=== PATIENT | female | born 1955 | race Caucasian/White ===

== ENCOUNTER 2017-01-20 04:10 | Inpatient (IN) | payer MEDICARE, OTHER ==
[~2017-01-20] VITALS: Ht 167.6 cm; Wt 71.9 kg
[2017-01-20] MEDS ORDERED: ASPI325T PO (04:27)
[2017-01-20] MEDS ORDERED: MORPHINE 4 MG/ML 1ML SYRINGE IV PRN (06:00)
[2017-01-20] MEDS ORDERED: ONDANSETRON 4MG/2ML VIAL (J2405) IV ONE (06:00)
[2017-01-20 06:15] LABS: BASO % 0.4 % (0.0-1.0); EOS % 0.6 % (0.0-3.0); LARGE UNSTAINED CELL # 0.1 K/mm3 (0.0-0.4); LYMPH # 0.6 K/mm3 (1.5-4.5); MEAN CORPUSCULAR HEMOGLOBIN 24.3 pg (27.0-33.0); MEAN CORPUSCULAR HGB CONC 31.9 g/dl (32.0-36.5); MEAN CORPUSCULAR VOLUME 76.3 fl (80.0-96.0); MONO # 0.3 K/mm3 (0.0-0.8); MONO % 3.7 % (0.0-5.0); NEUTROPHILS # 6.8 K/mm3 (1.8-7.7); NEUTROPHILS % 87.3 % (36.0-66.0); PLATELET COUNT, AUTOMATED 236 k/mm3 (150-450); RED CELL DISTRIBUTION WIDTH 16.2 % (11.5-14.5); WHITE BLOOD COUNT 7.7 K/mm3 (4.0-10.0)
[2017-01-20 06:23] LABS: INR 1.05
[2017-01-20 06:25] LABS: ANION GAP 4 MEQ/L (8-16); BLOOD UREA NITROGEN 11 MG/DL (7-18); CARBON DIOXIDE LEVEL 29 MEQ/L (21-32); CHLORIDE LEVEL 109 MEQ/L (98-107); CREATININE FOR GFR 0.66 MG/DL (0.55-1.02); GLOMERULAR FILTRATION RATE > 60.0 (>45); GLUCOSE, FASTING 120 MG/DL (80-110); POTASSIUM SERUM 4.2 MEQ/L (3.5-5.1); SODIUM LEVEL 142 MEQ/L (136-145)
[2017-01-20] MEDS ORDERED: NS 1,000 ML IV SCH ×2 (06:30→13:30)
--- NOTE | 2017-01-20 08:05 | REP ---
Portable chest: Single view. History: Preop. Comparison study: No comparison study. Findings: The lungs are well inflated and clear. The pleural angles are sharp. Heart size is normal. Pulmonary vasculature is not increased. No significant bony abnormality is seen. Impression: Negative portable chest x-ray. Signed by Marshall Dorado MD 01/20/2017 07:56 A
[2017-01-20] MEDS ORDERED: PERCOCET 5MG/325MG TAB PO PRN ×3 (08:15→13:30)
[2017-01-20] MEDS ORDERED: MORPHINE 2 MG/ML 1ML SYRINGE IV PRN ×3 (08:15→13:30)
[2017-01-20] MEDS ORDERED: ONDANSETRON 4MG/2ML VIAL (J2405) IV PRN ×2 (08:15→13:30)
[2017-01-20] MEDS ORDERED: BISACODYL 10 MG SUPP PR PRN (08:15)
--- NOTE | 2017-01-20 08:16 | REP ---
AP pelvis: Single view. History: Injury in a fall. Findings: There is a radiolucency through the medial aspect of the femoral neck on the left consistent with a nondisplaced left femoral neck fracture. The bony pelvic ring is intact. No sacral or pelvic fracture is seen. There is some degenerative change in the symphysis pubis and in the lower lumbar spine. Impression: Left femoral neck fracture. Signed by Marshall Dorado MD 01/20/2017 08:37 A
--- NOTE | 2017-01-20 08:37 | REP ---
Left hip: Three views. History: Trauma. Findings: There is a nondisplaced left femoral neck fracture visible. The left hemipelvis appears intact. No other fracture is seen. Impression: Nondisplaced fracture of the left femoral neck. Signed by Marshall Dorado MD 01/20/2017 09:54 A
[2017-01-20] MEDS: SENOKOT S TAB PO SCH ×2 (09:00→20:17)
--- NOTE | 2017-01-20 10:12 | HPEPDOC ---
General Date of Admission Jan 20, 2017 at 08:14 Chief Complaint The patient is a 61-year-old female admitted with a reason for visit of Hip Fx. History of Present Illness PRIMARY CARE PROVIDER: Dr. [facility] CHIEF COMPLAINT: fall HISTORY OF PRESENT ILLNESS: Ms. Knox is a 61-year-old postmenopausal female with a past medical history significant only for meningioma status post resection ~3 years ago and varicose veins, who presented to the [facility] ED around 4 AM this morning status- post fall. Is being evaluated today by hospitalist service for medical optimization for a L hip fracture repair to be done today by Orthopedic Surgery. States that she was in the garage last night around 8 PM, and "managed to move her left foot backwards, her foot went from right under her, her right foot was planted, she lost her balance, and fell on her left side on her left hip." Denies hitting her head or having any loss of consciousness. Admits that there was a left scrape over her pinky finger. She was able to get back up and still able to walk in her home. She decided not to come to the emergency department right away because she wanted to give it some time and see if her pain got better in her left hip. However, she ended up coming around 4 AM to the ED this morning as there was no improvement. Rates her pain 8 out of 10 and it is an ache. Does not radiate anywhere. Denies numbness in her L leg or anywhere else. She has taken nothing for the pain and did not try any hot compresses or ice. At this point in time, she reports minimal to no pain and states that she has just received morphine. Admits that she has fallen before, but has never had a fracture. States that she has residual weakness on her left side from her history of meningioma, and often has some weakness on that side that causes her to fall at times. 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 Denies being on any blood thinners. Takes one half of a 325 mg tablet of aspirin every day. Upon review of systems, patient denies fevers, chills, headache, dizziness, chest pain, palpitations, shortness of breath, nausea, vomiting, abdominal pain , diarrhea, constipation. Admits to some tingling in her left foot that is usually there and is nothing new. Admits to residual weakness in her L left leg from her history of her meningioma, but no increased or new weakness. Denies numbness in any extremity. Denies bowel or bladder incontinence. PAST MEDICAL HISTORY: Hx of Meningioma status-post resection 3 years ago Impacted [place] Tooth in R Lower Jaw 30 years ago status-post Removal Varicose Veins from Postmenopause Hx of Dysfunctional Uterine Bleeding with severe menorrhagia with resultant anemia 4 Full-Term Spontaneous Vaginal Deliveries PAST SURGICAL HISTORY: Meningioma Resection 3 years ago Tubal Ligation 1990 Endometrial Biopsy 2006 MEDICATIONS: Aspirin: 1/2 tablet of 325 mg daily (162.5 mg) Magnesium Oxide: 30 mg BID (does not take regularly and may take only 1 tablet daily) Vitamin B2: 1 tablet at night ALLERGIES: NKDA No Latex Allergy. No environmental allergies. SOCIAL HISTORY: and lives with Norman June: health care proxy Has 4 children. Occupation: used to be dairy and strawberry cabrera for many years. Current Occupation: [employer] Reports no exposure to asbestos or toxic chemicals Denies any recent sick contacts Denies any recent travel anywhere FAMILY HISTORY: Father: 81 yo, had quadruple bypass, prostate cancer, alive Mother: 81 yo, has bipolar disorder, hx of hiatal hernia, alive 4 brothers and 2 sisters Brother: 59 yo, has CAD status-post PCI Brother: 55 yo, Type 2 DM Other brothers and sisters healthy and alive Paternal Aunt: breast cancer Maternal Grandfather: melanoma CODE STATUS: FULL CODE REVIEW OF SYSTEMS: All ROS negative except for those as stated above in HPI. Vitals: T: 99 BP:119/78 RR: 18 P: 94 O2 Saturation: 99% room air General: Pleasant elderly thin female. Appears stated age. Awake, alert, oriented x 3. NAD. HEENT: Head: normocephalic, atraumatic. Eyes: PERRL, sclera are nonicteric, cataracts appreciated bilaterally. Nose: No external lesions Throat: no pharyngeal erythema or exudates, tongue is a bit white, moist buccal mucosa Neck: Supple Respiratory: clear to auscultation bilaterally with no wheezes, rales, or rhonchi. Chest: Symmetrical chest rise bilaterally. Cardiovascular: regular rate and rhythm, with no murmurs, rubs or gallops. Abdomen: soft, nontender, nondistended, no hepatosplenomegaly appreciated. Bowel sounds present. Extremities: 5/5 strength upper extremities bilaterally. 5/5 strength in RLE. No strength testing done in LLE due to hip fracture. No LE edema bilaterally. Feet are cool to the touch bilaterally. No swelling in either lower extremity bilaterally. MSK: No tenderness to palpation of L hip currently (has had morphine) Neurological: CN 2-12 intact bilaterally. Sensation intact in upper and lower extremities bilaterally. Integumentary: L 5th digit scrape on dorsal surface. Vascular: +1 dorsalis pedis pulse and +2 posterior tibialis pulse in LLE. +2 dorsalis pedis pulse in RLE. LABORATORY DATA: Please see below. ELECTROCARDIOGRAM: Normal Sinus Rhythm with no acute ST-T wave changes, elevations, or depression. Ventricular Rate: 80 bpm. MN interval: 161 ms QRS duration: 83 ms QTc: 426 ms RADIOLOGY: L AP and Lateral Hip X-Ray: Nondisplaced Fracture of L Femoral Neck. CXR: Negative portable chest x-ray. Pelvis AP X-ray: Left femoral neck fracture. ASSESSMENT: Ms. Knox is a 61-year-old female with a past medical history significant only from meningioma status post resection ~3 years ago and varicose veins, who presented to the [facility] ED around 4 AM this morning status-post fall causing a L hip fracture. Is being evaluated today by hospitalist service for medical optimization for a L hip fracture repair to be done today by Orthopedic Surgery. PLAN: -L Hip Fracture: Orthopedics consulted and has seen patient. Will take to the OR today for repair. NPO and IVF on board. Pain control, DVT ppx, and bowel regimen as per orthopedics. -Presurgical Evaluation: EKG showed NSR with no acute ST-T wave changes. Patient has been evaluated to be Low Cardiac Risk from a medical standpoint. Is medically optimized for the proposed procedure. Denied chest pain, SOB. Has no significant medical hx. -Continue home medications. DVT ppx: as per Orthopedics FULL CODE STATUS Immunizations as per protocol My preceptor for this patient encounter was Dr. Danielle Oliver and was physically present in the building during the encounter and was fully available. As needed , all aspects of the patient interview, examination, medical decision making process, and medical care plan development were reviewed and approved by the preceptor. Preceptor is aware and concurs with the plan as stated in the body of this note and will attest to such by his/her cosignature. Home Medications Scheduled Aspirin (Aspirin) 325 Mg Tab, 162.5 MG PO DAILY, (Reported) Allergies Coded Allergies: No Known Allergies (Unverified , 01/20/17) Vital Signs Vital Signs Date Time Temp Pulse Resp B/P (MAP) Pulse Ox O2 Delivery O2 Flow Rate FiO2 01/20/17 06:28 20 100 Room Air 01/20/17 06:28 78 119/64 (82) 01/20/17 04:24 99.0 Laboratory Data Labs 24H Laboratory Tests 2 01/20/17 05:38: White Blood Count 7.7, Red Blood Count 4.74, Hemoglobin 11.5L, Hematocrit 36.2, Mean Corpuscular Volume 76.3L, Mean Corpuscular Hemoglobin 24.3L, Mean Corpuscular Hemoglobin Concent 31.9L, Red Cell Distribution Width 16.2H, Platelet Count 236, Neutrophils (%) (Auto) 87.3H, Lymphocytes (%) (Auto) 7.0L, Monocytes (%) (Auto) 3.7, Eosinophils (%) (Auto) 0.6, Basophils (%) (Auto) 0.4, Neutrophils # (Auto) 6.8, Lymphocytes # (Auto) 0.6L, Monocytes # (Auto) 0.3, Eosinophils # (Auto) 0.0, Basophils # (Auto) 0.0, Large Unclassified Cells % 1.0 , Large Unclassified Cells # 0.1, Prothrombin Time 13.8, Prothromb Time International Ratio 1.05, Activated Partial Thromboplast Time 29.8, Anion Gap 4L , Glomerular Filtration Rate > 60.0, Blood Urea Nitrogen 11, Creatinine 0.66, Sodium Level 142, Potassium Level 4.2, Chloride Level 109H, Carbon Dioxide Level 29, Calcium Level 9.0 CBC/BMP Laboratory Tests 01/20/17 05:38 Red Blood Count 4.74, Mean Corpuscular Volume 76.3 L, Mean Corpuscular Hemoglobin 24.3 L, Mean Corpuscular Hemoglobin Concent 31.9 L, Red Cell Distribution Width 16.2 H, Neutrophils (%) (Auto) 87.3 H, Lymphocytes (%) (Auto ) 7.0 L, Monocytes (%) (Auto) 3.7, Eosinophils (%) (Auto) 0.6, Basophils (%) ( Auto) 0.4, Neutrophils # (Auto) 6.8, Lymphocytes # (Auto) 0.6 L, Monocytes # ( Auto) 0.3, Eosinophils # (Auto) 0.0, Basophils # (Auto) 0.0, Calcium Level 9.0 Plan / VTE VTE Prophylaxis Ordered?: No (As per Orthopedics Team) LEONELA SANCHEZ OGME-1 Jan 20, 2017 10:12
[2017-01-20] MEDS ORDERED: ceFAZolin 2 GM/D5W 50 ML IV BAG (J0690) As Ordered ONE (11:41)
[2017-01-20] MEDS ORDERED: LIDOCAINE 2% INJ 100 MG/5 ML SDV (FOR ANES.) As Ordered ONE (12:37)
[2017-01-20] MEDS ORDERED: PHENYLephrine HCL 500 MCG/5 ML (100MCG/ML) SYRINGE (J2370) As Ordered ONE (12:37)
[2017-01-20] MEDS ORDERED: MIDAZOLAM INJ 2 MG/2 ML VIAL (J2250) As Ordered ONE (12:37)
[2017-01-20] MEDS ORDERED: ePHEDrine SULFATE 25 MG/5 ML(5MG/ML) SYRINGE As Ordered ONE (12:37)
[2017-01-20] MEDS ORDERED: fentaNYL 100 MCG/2 ML INJECTION (J3010) As Ordered ONE (12:37)
[2017-01-20] MEDS ORDERED: PROPOFOL 200 MG/20 ML VIAL As Ordered ONE (12:37)
[2017-01-20] MEDS ORDERED: ONDANSETRON 4MG/2ML VIAL (J2405) As Ordered ONE (12:47)
[2017-01-20] MEDS ORDERED: LR 1,000 ML IV SCH (13:30)
[2017-01-20] MEDS ORDERED: METOCLOPRAMIDE INJ 10MG/2ML VIAL (J2765) IV PRN (13:30)
[2017-01-20] MEDS ORDERED: fentaNYL 100 MCG/2 ML INJECTION (J3010) IV PRN (13:30)
--- NOTE | 2017-01-20 13:34 | REP ---
Left hip: Five views. History: ORIF in the OR. 1 minute 11 seconds of fluoroscopy time is reported. Findings: A sequence of five last image hold fluoro spot radiographs of the left hip document placement of three metallic pins across a femoral neck fracture. Signed by Marshall Dorado MD 01/20/2017 04:13 P
[2017-01-20 14:00] VITALS: BP 123/76
[2017-01-20 14:30] VITALS: BP 128/79
[2017-01-20] MEDS: PERCOCET 5MG/325MG TAB PO PRN ×2 (14:59→19:01)
--- NOTE | 2017-01-20 15:25 | CR ---
DATE OF CONSULTATION: 01/20/2017 CHIEF COMPLAINT: Left hip pain, status post fall. HISTORY OF PRESENT ILLNESS: The patient fell at 8 p.m. on 01/19 at her home directly onto her left hip. She was able to ambulate after that and woke this morning still able to ambulate, but presented to the emergency room due to persistent hip joint pain. No other complaints. She does have a past medical history significant for meningioma excision with resultant left-sided hemiparesis affecting the lower extremity, which she states has been chronic foot drop, chronic weakness as well. She denies any acute changes in her neurovascular function in the left lower extremity and has no other complaints at this time. PAST MEDICAL HISTORY: As above. PAST SURGICAL HISTORY: As above; also a tubal ligation. CURRENT MEDICATIONS: States that she is only taking a single daily aspirin. ALLERGIES: None known. SOCIAL HISTORY: She denies tobacco use. REVIEW OF SYSTEMS: No fever, chills, nausea, vomiting. No diarrhea, no constipation. No chest pain or shortness of breath. PHYSICAL EXAMINATION: GENERAL: Awake, alert, and oriented times three, well-appearing female in no acute distress. She is appropriately dressed and well nourished. HEENT: Head is normocephalic, atraumatic. Extraocular muscles are intact. CARDIOVASCULAR: Regular rate and rhythm. PULMONARY: No increased work of breathing. ABDOMEN: Soft, nontender, nondistended. FOCUSED EXAMINATION OF THE LEFT LOWER EXTREMITY: There is focal tenderness about the greater trochanter and the hip joint. No significant swelling or edema. The skin is intact. Distally she has 2+ dorsalis pedis and posterior tibialis pulse. The foot is pink, warm and well perfused with sensation intact to light touch, and less than 2 seconds capillary refill on all of her toes. She has weakness with tibialis anterior and extensor hallucis longus function. Plantar flexion is grossly intact. She is able to flex and extend the knee fairly well and comfortably. She has a positive log roll, positive heel tap on the left side. She states that, again, the weakness in her left lower extremity is chronic with no changes. Examination of the right lower extremity is grossly negative. Negative log roll, negative heel tap. Grossly neurovascularly intact. BILATERAL UPPER EXTREMITIES: She has comfortable fluid arm movement up above the level of her head. CERVICAL SPINE: Nontender with a full pain-free range of motion. IMAGING: X-rays of the left hip joint and AP pelvis show a minimally or nondisplaced femoral neck fracture in slight valgus. Age-related degenerative changes are appreciated. ASSESSMENT: Acute femoral neck fracture as above. PLAN: I discussed at length with the patient the treatment options, operative and nonoperative management was discussed. I also discussed the various surgical options ranging from hip arthroplasty to internal fixation, and she is electing to go forward at this time with the left hip cannulated screw fixation of the fracture. We had a long discussion about the risks and benefits of treatment options, and she signed the surgical consent in my presence. She will be evaluated by the hospitalist service for admission and preoperative clearance. I did also review her labs and vital signs that are available for review in the electronic medical record. Overall, she should be stable to go through with the above operation today with typical postoperative management. Edited: jonathan 01/23/2017 1559 MTDD
[2017-01-20 15:30] VITALS: BP 132/75
[2017-01-20] MEDS ORDERED: WARFARIN SOD 5 MG TAB PO ONE (19:00)
--- NOTE | 2017-01-20 19:38 | ECGEPIP ---
Stationary ECG Study [facility] - ED Test Date: 2017-01-20 Pat Name: TIMMY RANKIN Department: Room: - Gender: F Medical Affairs Director: beto : 1955 Requested By: MARNI Calderón Order Number: [id number] Reading MD: Dai Davalos Measurements Intervals [place] Rate: 80 P: -19 MO: 161 QRS: 38 QRSD: 83 T: 21 QT: 390 QTc: 450 Interpretive Statements SINUS RHYTHM LOW QRS VOLTAGE LIMB LEADS NONSPECIFIC ST T WAVE CHANGES NO OLD ECGS FOR COMPARISON Electronically Signed On 01-20-2017 19:37:38 EDT by Dai Davalos
[2017-01-20] MEDS: ceFAZolin SOD 1 GM in D5W MINI-BAG PLUS 50 ML IV SCH (20:17)
[2017-01-20 22:00] VITALS: BP 120/77
[2017-01-21] MEDS: PERCOCET 5MG/325MG TAB PO PRN ×2 (00:07→04:45)
[2017-01-21] MEDS: ceFAZolin SOD 1 GM in D5W MINI-BAG PLUS 50 ML IV SCH (04:45)
[2017-01-21 06:00] VITALS: BP 114/68
[2017-01-21 06:31] LABS: BASO % 0.5 % (0.0-1.0); EOS # 0.3 K/mm3 (0.0-0.50); EOS % 4.5 % (0.0-3.0); LARGE UNSTAINED CELL # 0.1 K/mm3 (0.0-0.4); LARGE UNSTAINED CELL % 1.7 % (0.0-4.0); LYMPH # 1.6 K/mm3 (1.5-4.5); LYMPH % 24.4 % (24.0-44.0); MEAN CORPUSCULAR HEMOGLOBIN 24.5 pg (27.0-33.0); MEAN CORPUSCULAR HGB CONC 32.1 g/dl (32.0-36.5); MEAN CORPUSCULAR VOLUME 76.5 fl (80.0-96.0); MONO # 0.4 K/mm3 (0.0-0.8); MONO % 6.5 % (0.0-5.0); NEUTROPHILS # 3.8 K/mm3 (1.8-7.7); NEUTROPHILS % 62.4 % (36.0-66.0); PLATELET COUNT, AUTOMATED 200 k/mm3 (150-450); RED CELL DISTRIBUTION WIDTH 16.5 % (11.5-14.5); WHITE BLOOD COUNT 6.1 K/mm3 (4.0-10.0)
[2017-01-21 06:43] LABS: INR 1.15
[2017-01-21 06:46] LABS: ANION GAP 4 MEQ/L (8-16); BLOOD UREA NITROGEN 9 MG/DL (7-18); CALCIUM LEVEL 8.2 MG/DL (8.8-10.2); CARBON DIOXIDE LEVEL 27 MEQ/L (21-32); CHLORIDE LEVEL 105 MEQ/L (98-107); CREATININE FOR GFR 0.62 MG/DL (0.55-1.02); GLOMERULAR FILTRATION RATE > 60.0 (>45); GLUCOSE, FASTING 97 MG/DL (80-110); POTASSIUM SERUM 3.9 MEQ/L (3.5-5.1); SODIUM LEVEL 136 MEQ/L (136-145)
--- NOTE | 2017-01-21 08:08 | IPNPDOC ---
Subjective Date Seen The patient was seen on 01/21/17. Subjective Chief Complaint/HPI The patient is a 61-year-old female admitted with a reason for visit of Hip Fx. Events since last encounter pateint denied any complaints this morning, no fever or chills, pain well controlled, no chest pain ro sob , no abdominal pain or nausea or vomiting or diarrhea. Objective Physical Examination General Exam: Positive: Alert, Cooperative, No Acute Distress Eye Exam: Positive: PERRLA, Conjunctiva & lids normal, EOMI, Negative: Sclera icteric ENT Exam: Positive: Atraumatic, Mucous membr. moist/pink, Pharynx Normal Neck Exam: Positive: Supple, Negative: JVD, thyromegaly Chest Exam: Positive: Clear to auscultation, Normal air movement Heart Exam: Positive: Rate Normal, Regular Rhythm, Normal S1, Normal S2, Negative: Murmurs, Rubs Abdomen Exam: Positive: Normal bowel sounds, Soft, Negative: Tenderness, Hepatospenomegaly Extremity Exam: Positive: Normal pulses, Negative: Clubbing, Cyanosis, Edema Skin Exam: Positive: Nl turgor and temperature, Negative: Rash, Breakdown Assessment /Plan Problems (1) Hip fracture Status: Acute Problem Text: Left s/p ORIF on 01/20/17 pain control and dvt prophylaxis as per ortho protocol. (2) Meningioma Status: Resolved Problem Text: Had resection 3 years ago. now with mild left leg weakness. Plan/VTE VTE Prophylaxis Ordered?: Yes (As per Orthopedics Team) VS, I&O, 24H, Fishbone Vital Signs/I&O Vital Signs Date Time Temp Pulse Resp B/P (MAP) Pulse Ox O2 Delivery O2 Flow Rate FiO2 01/21/17 06:00 98.2 72 18 114/68 (83) 96 Room Air I&O- Last 24 Hours up to 6 AM 01/21/17 05:59 Intake Total 2690 ml Output Total 1350 ml Balance 1340 ml Laboratory Data 24H LABS Laboratory Tests 2 01/21/17 06:13: White Blood Count 6.1, Red Blood Count 4.02, Hemoglobin 9.9L, Hematocrit 30.7L, Mean Corpuscular Volume 76.5L, Mean Corpuscular Hemoglobin 24.5L, Mean Corpuscular Hemoglobin Concent 32.1, Red Cell Distribution Width 16.5H, Platelet Count 200, Neutrophils (%) (Auto) 62.4, Lymphocytes (%) (Auto) 24.4, Monocytes (%) (Auto) 6.5H, Eosinophils (%) (Auto) 4.5H, Basophils (%) (Auto) 0.5 , Neutrophils # (Auto) 3.8, Lymphocytes # (Auto) 1.6, Monocytes # (Auto) 0.4, Eosinophils # (Auto) 0.3, Basophils # (Auto) 0.0, Large Unclassified Cells % 1.7 , Large Unclassified Cells # 0.1, Prothrombin Time 14.8H, Prothromb Time International Ratio 1.15, Anion Gap 4L, Glomerular Filtration Rate > 60.0, Blood Urea Nitrogen 9, Creatinine 0.62, Sodium Level 136, Potassium Level 3.9, Chloride Level 105, Carbon Dioxide Level 27, Calcium Level 8.2L CBC/BMP Laboratory Tests 01/21/17 06:13 Red Blood Count 4.02, Mean Corpuscular Volume 76.5 L, Mean Corpuscular Hemoglobin 24.5 L, Mean Corpuscular Hemoglobin Concent 32.1, Red Cell Distribution Width 16.5 H, Neutrophils (%) (Auto) 62.4, Lymphocytes (%) (Auto) 24.4, Monocytes (%) (Auto) 6.5 H, Eosinophils (%) (Auto) 4.5 H, Basophils (%) ( Auto) 0.5, Neutrophils # (Auto) 3.8, Lymphocytes # (Auto) 1.6, Monocytes # (Auto ) 0.4, Eosinophils # (Auto) 0.3, Basophils # (Auto) 0.0, Calcium Level 8.2 L NICOLE LEDBETTER MD Jan 21, 2017 08:08
[2017-01-21] MEDS: MOM 30ML SUSPENSION UDC PO SCH (09:30)
[2017-01-21] MEDS: SENOKOT S TAB PO SCH ×2 (09:30→19:54)
--- NOTE | 2017-01-21 10:52 | RO ---
DATE OF PROCEDURE: 01/20/2017 PREOPERATIVE DIAGNOSIS: Left femoral neck fracture. POSTOPERATIVE DIAGNOSIS: Left femoral neck fracture. PROCEDURE PERFORMED: Left hip percutaneous screw fixation, plus closed reduction. PRIMARY SURGEON: Adi Lovelace MD TECHNOLOGY SALES CONSULTANT: STEFFEN Tatum, [employer] ANESTHESIA: Spinal. ESTIMATED BLOOD LOSS: 150 mL. IMPLANTS: Synthes partially threaded, 7.3 mm cannulated cancellous screws with washers times three. No specimens. No blood administered. No complications. TECHNICAL PROCEDURE: The patient was identified in the preoperative holding area by name, medical record number and date of . Surgical site was marked in consultation with the patient, and she was evaluated by anesthesia. When she was ready, she was brought back to the operating suite on a gurney and transferred to the operating room (OR) table. At this point, spinal anesthesia was induced without complication and the left lower extremity was next sterile prepped and draped in the usual fashion after she was placed in the fracture table, appropriately padding all bony prominences and securing the well leg. Prior to beginning the procedure, a final time-out was performed and all in the room agreed. She was given IV antibiotics of Ancef 2 grams prior to incision. I began the procedure by performing a limited closed reduction correcting a apex anterior flexion deformity of the femoral neck with some gentle posterior pressure confirming satisfactory reduction on multiple fluoroscopic views. I next made a longitudinal dissection centered over the greater trochanter, dissecting down through the skin and subcutaneous fat. Next, I identified and split the iliotibial band and went to bone. I next inserted three partially threaded, 7.3 mm cancellous cannulated screws with washers appropriately sized and confirmed satisfactory reduction of the fracture and placement of all hardware with fluoroscopic views in AP, lateral and live fluoroscopy throughout range of motion satisfactory internal fixation was appreciated. There was solid purchase on the lateral cortex. The wound was next copiously irrigated and closed in layers to include the fascia. Sterile dressings were applied. The patient was brought out of the fracture table and brought out of anesthesia and transferred to the postanesthesia care unit. FLAVIO
[2017-01-21 14:00] VITALS: BP 104/65
[2017-01-21] MEDS ORDERED: WARFARIN SOD 5 MG TAB PO ONE ×2 (17:00)
[2017-01-21 22:00] VITALS: BP 128/79
[2017-01-22] MEDS: PERCOCET 5MG/325MG TAB PO PRN ×2 (00:30→10:22)
[2017-01-22 06:00] VITALS: BP 109/70
[2017-01-22 07:14] LABS: BASO % 0.5 % (0.0-1.0); EOS # 0.3 K/mm3 (0.0-0.50); EOS % 4.4 % (0.0-3.0); LARGE UNSTAINED CELL # 0.1 K/mm3 (0.0-0.4); LARGE UNSTAINED CELL % 1.7 % (0.0-4.0); LYMPH # 1.4 K/mm3 (1.5-4.5); LYMPH % 18.2 % (24.0-44.0); MEAN CORPUSCULAR HEMOGLOBIN 24.3 pg (27.0-33.0); MEAN CORPUSCULAR HGB CONC 31.9 g/dl (32.0-36.5); MEAN CORPUSCULAR VOLUME 76.3 fl (80.0-96.0); MONO # 0.4 K/mm3 (0.0-0.8); MONO % 5.6 % (0.0-5.0); NEUTROPHILS # 4.9 K/mm3 (1.8-7.7); NEUTROPHILS % 69.5 % (36.0-66.0); PLATELET COUNT, AUTOMATED 221 k/mm3 (150-450); RED CELL DISTRIBUTION WIDTH 16.7 % (11.5-14.5); WHITE BLOOD COUNT 7.1 K/mm3 (4.0-10.0)
[2017-01-22 07:23] LABS: INR 1.23
[2017-01-22 07:36] LABS: ANION GAP 4 MEQ/L (8-16); BLOOD UREA NITROGEN 9 MG/DL (7-18); CALCIUM LEVEL 8.7 MG/DL (8.8-10.2); CARBON DIOXIDE LEVEL 28 MEQ/L (21-32); CHLORIDE LEVEL 107 MEQ/L (98-107); GLOMERULAR FILTRATION RATE > 60.0 (>45); GLUCOSE, FASTING 98 MG/DL (80-110); SODIUM LEVEL 139 MEQ/L (136-145)
[2017-01-22] MEDS ORDERED: MILKSUS PO (07:42)
[2017-01-22] MEDS ORDERED: SENN1TAB2 PO (07:42)
[2017-01-22] MEDS ORDERED: PERC5TAB6 PO (08:26)
[2017-01-22] MEDS ORDERED: COUM2.5T11 PO (08:26)
[2017-01-22] MEDS: MOM 30ML SUSPENSION UDC PO SCH (09:00)
[2017-01-22] MEDS: SENOKOT S TAB PO SCH (10:21)
--- NOTE | 2017-01-22 10:57 | DSES ---
DATE OF ADMISSION: 01/20/2017 DATE OF DISCHARGE: 01/22/2017 PRIMARY CARE PROVIDER: Adriana Munoz ORTHOPEDIC SURGEON: Dr. Adi Lovelace DISCHARGE DIAGNOSIS: Left fracture neck femur. Status post ORIF (open reduction and internal fixation) on January 20, 2017. History of meningoma status post resection in 2014 with residual mild left leg weakness. DISCHARGE MEDICATIONS: - Percocet 1-2 tablets every 6 hours as needed pain. - Coumadin daily - Senna Plus one tablet by mouth twice a day - Milk of Magnesia 30 mL suspension by mouth daily HOSPITAL COURSE: This is a 61-year-old healthy female who tripped and fell in her garage in the evening of January 19, 2017. She was able to get up by herself, went into the house, took a shower, walked about hoping her hip would get better. She had hurt her left hip and thought that pain would get better, however, at around 3 a.m. she was in excruciating pain and so came to the emergency room. In the ED (emergency department) patient was found to have left femoral neck fracture, patient was seen by Dr. Adi Lovelace, was subsequently to OP (operating room) and had ORIF done on January 20, 2017. Patient's surgery was uneventful and postoperative period was uneventful. At present patient has been seen by PT (physical therapy) and has been cleared to go home with home PT. Patient's pain is controlled and vitals are stable. PHYSICAL EXAMINATION: VITAL SIGNS: Temperature 98.7, pulse 82, respiratory rate 18. Blood pressure 109/70, pulse oximetry 94% on room air. GENERAL: Patient awake, alert and oriented times three, sitting up in chair in no acute distress. HEENT: Normocephalic atraumatic. Moist mucous membranes. Anicteric eyes. CHEST: Clear to auscultation. CARDIOVASCULAR: S1, S2, regular, no rub, murmur, or gallop. ABDOMEN: Soft, nontender. Bowel sounds present. EXTREMITIES: No edema. LABORATORY DATA: WBC 7.1, hemoglobin 10.6, platelet 221, sodium 139, potassium 4, chloride 107, bicarbonate 28, BUN 9, creatinine 0.6, glucose 98, calcium 8.7, INR is 1.23. DISPOSITION: Patient is discharged home in stable condition. DISCHARGE INSTRUCTIONS: Patient to followup with orthopedics in 2 weeks. Patient to followup with primary care provider in 1 month. Activity as per physical therapy. Diet as tolerated.
== END 2017-01-22 13:10 | disposition home health service (06) | DRG 481 ==
LOC: M ED 05:57 → M ED INP 08:14 → M MS5PR 14:00
PROVIDERS: ADMIT Internal Medicine Nephrology; ATTEND Internal Medicine Nephrology
PROC: 0QS734Z Reposition Left Upper Femur with Internal Fixation Device, Percutaneous Approach (ICD-10-PCS; principal; 2017-01-20 07:48)
DX: S72.045A Nondisplaced fracture of base of neck of left femur, initial encounter for closed fracture (principal); I69.854 Hemiplegia and hemiparesis following other cerebrovascular disease affecting left non-dominant side; W01.0XXA Fall on same level from slipping, tripping and stumbling without subsequent striking against object, initial encounter; Y92.015 Private garage of single-family (private) house as the place of occurrence of the external cause; M21.372 Foot drop, left foot; Y99.8 Other external cause status; Z79.82 Long term (current) use of aspirin; Z79.899 Other long term (current) drug therapy

== ENCOUNTER 2017-05-06 12:20 | Emergency (ER) | payer OTHER ==
[~2017-05-06] VITALS: Ht 170.2 cm; Wt 160.0 kg
[~2017-05-06 12:20] MED LIST: ASPI325T PO; COUM2.5T17 PO; MILKSUS PO; PERC5TAB12 PO; SENN1TAB2 PO
[2017-05-06] MEDS ORDERED: NORCO, ANEXSIA 5/325MG TABLET (HYDROcodone/ACETAMINOPHEN) PO ONE (12:45)
[2017-05-06] MEDS ORDERED: MORPHINE 4 MG/ML 1ML SYRINGE IV ONE (13:15)
--- NOTE | 2017-05-06 13:27 | REP ---
LEFT WRIST, FOUR VIEWS: HISTORY: Injury. There is a comminuted fracture of the distal radius and fracture of the ulnar styloid process. There is posterior dislocation of the fracture fragments and carpal bones. There is narrowing of the first carpometacarpal joint space. IMPRESSION: Fracture dislocation of the radius and ulna. Signed by Jaime Aparicio MD 05/06/2017 01:47 P
[2017-05-06 13:35] LABS: BASO % 0.6 % (0.0-1.0); EOS # 0.3 10^3/uL (0.0-0.50); EOS % 3.9 % (0.0-3.0); IMMATURE GRANULOCYTE % 0.3 % (0-0); LYMPH # 1.3 10^3/uL (1.5-4.5); LYMPH % 18.8 % (24.0-44.0); MEAN CORPUSCULAR HEMOGLOBIN 24.8 pg (27.0-33.0); MEAN CORPUSCULAR HGB CONC 32.3 g/dl (32.0-36.5); MEAN CORPUSCULAR VOLUME 76.6 fl (80.0-96.0); MONO # 0.4 10^3/uL (0.0-0.8); MONO % 6.3 % (0.0-5.0); NEUTROPHILS # 4.9 10^3/uL (1.8-7.7); NEUTROPHILS % 70.1 % (36.0-66.0); PLATELET COUNT, AUTOMATED 253 10^3/uL (150-450); RED CELL DISTRIBUTION WIDTH 17.8 % (11.5-14.5)
[2017-05-06 13:52] LABS: ANION GAP 6 MEQ/L (8-16); BLOOD UREA NITROGEN 12 MG/DL (7-18); CALCIUM LEVEL 9.3 MG/DL (8.8-10.2); CARBON DIOXIDE LEVEL 27 MEQ/L (21-32); CHLORIDE LEVEL 104 MEQ/L (98-107); CREATININE FOR GFR 0.67 MG/DL (0.55-1.02); GLOMERULAR FILTRATION RATE > 60.0 (>45); GLUCOSE, FASTING 97 MG/DL (80-110); POTASSIUM SERUM 3.7 MEQ/L (3.5-5.1); SODIUM LEVEL 137 MEQ/L (136-145)
[2017-05-06] MEDS ORDERED: LIDOCAINE 1% MDV 20ML VIAL IM ONE (14:15)
--- NOTE | 2017-05-06 14:49 | ER ---
DATE OF CONSULTATION: 05/06/2017 REASON FOR CONSULTATION: Displaced left distal comminuted intra-articular distal radius fracture. HISTORY OF PRESENT ILLNESS: She is a 61-year-old left hand dominant female who has chronic left sided hemiparesis from a meningioma resection 3-1/2 years ago who slipped and fell coming out of [employer] this morning and landed on her outstretched wrist, had some small abrasion her forehead and several cuts on her fingers, but no other injury. No loss of consciousness. No other complaints of pain or soreness other than the left wrist. She presented to the emergency room, was evaluated by the ER staff and I was called to see her because they diagnosed her with a distal radius fracture on the left side. She does not complain of numbness or tingling. PAST MEDICAL HISTORY: Significant for status post meningioma resection with left sided hemiparesis. PAST SURGICAL HISTORY: Meningioma resection. Pinning of left hip fracture. MEDICATIONS: None. ALLERGIES: None. SOCIAL HISTORY: She is , has four healthy children. She is here with her second . She lives in the [facility]. REVIEW OF SYSTEMS: Health survey is otherwise unremarkable. PHYSICAL EXAMINATION: When I examined her, she is alert, oriented and pleasant female, lying in the stretcher. Her blood pressure was 121/70, pulse 84, respirations 18, temperature 97.8, 02 sat is 100% on room air. HEENT: Exam shows a small abrasion over her forehead. Otherwise, atraumatic. LEFT UPPER EXTREMITY: Exam showed a benign examination of her left shoulder and elbow, but her wrist had clear apex volar deformity and radial shortening. However, she had a good radial pulse. She could flex and extend her fingers. Good capillary refill and sensation distal to the fracture site. Radiographs were reviewed showing a very comminuted, very distal intra-articular displaced apex volar fracture of the left distal radius and distal ulna. IMPRESSION: Comminuted intra-articular and displaced distal radius and ulnar fracture on the left. Patient with underlying hemiparesis on that side, but that is also her dominant arm. It is difficult to really interpret the x-rays. I would recommend we do a closed reduction and see if we can get this acceptably in line and hopefully treat this without surgical intervention. If it is not acceptable or it looks very unstable, we may want to consider some type of a surgical intervention, such as volar plate fixation or external fixation, which I talked to her about with her . So, we plan to proceed with a closed reduction and possibly consider surgical intervention if needed.
--- NOTE | 2017-05-06 14:53 | REP ---
LEFT WRIST, TWO VIEWS: HISTORY: Fracture. COMPARISON: 12:46 p.m. on 05/06/2017. A plaster cast is present obscuring bony detail. The patient is status post reduction of a fracture dislocation of the distal radius and ulna. There appears to be anatomic alignment through plaster. IMPRESSION: The patient is status post reduction of fractures of the distal radius and ulna. There is anatomic alignment. Signed by Jaime Aparicio MD 05/06/2017 02:53 P
[2017-05-06] MEDS ORDERED: NORCOTAB PO (14:55)
[2017-05-06 15:10] VITALS: BP 124/76
--- NOTE | 2017-05-06 20:26 | RO ---
DATE OF PROCEDURE: 05/06/2017 PREPROCEDURE DIAGNOSIS: Comminuted intraarticular displaced left radius and ulna fracture. POSTPROCEDURE DIAGNOSIS: Comminuted intraarticular displaced left radius and ulna fracture. PROCEDURE: Closed reduction using finger traps and hematoma block and external cast fixation of left distal radius and ulna fracture. SURGEON: Kyle Morris MD BUFFET ATTENDANT: ANESTHESIA: Local hematoma block with 1% Lidocaine. COMPLICATIONS: None. PROCEDURE: After a sterile prep of the dorsal aspect of her wrist was performed, 1% Lidocaine, total of 20 mL was infiltrated about the fracture site. Her thumb, index and long finger were placed into finger traps and then approximately 15 pounds of counterpressure on the distal humerus was then applied with her elbow at 90 degrees. After some time of gravity distraction with the weights, I then performed a closed reduction maneuver and was able to reduce the fracture quite nicely by clinical observation and palpation. While she was in the finger traps, a volar and dorsal plaster splints were applied, and then a short arm plaster cast was applied and molded appropriately until the cast had hardened. Then I removed the counterweights and removed her fingers from the finger traps. Post reduction x-rays were then ordered. She tolerated the procedure well. There were no complications.
--- NOTE | 2017-05-06 20:26 | IPN ---
DATE: 05/06/2017 POSTREDUCTION X-RAY REPORT: Radiographs showed nice near anatomic reduction of the distal radius fracture; however, what is evident is now there appears to be a transverse mid body scaphoid fracture, which seems reasonably aligned. I showed her the images, printed off the picture, talked to her and Stephany about this. I think that this may actually represent a transscaphoid perilunate fracture-dislocation of the distal radius. I advised referral to a hand surgeon, suggested Dr. Jaime Julio, and we will try to make that arrangement for her early this week. She is going to be discharged here from the emergency room and I am going to call her for the followup recommendations.
--- NOTE | 2017-05-08 09:10 | ECGEPIP ---
Stationary ECG Study [facility] - ED Test Date: 2017-05-06 Pat Name: TIMMY RANKIN Department: Room: - Gender: F Attraction Worker: sb : 1955 Requested By: DAISY Nieto PA-C Order Number: [id number] Reading MD: Lissy Nguyen Measurements Intervals [place] Rate: 79 P: 16 MI: 172 QRS: 59 QRSD: 85 T: 53 QT: 384 QTc: 442 Interpretive Statements SINUS RHYTHM BASELINE ARTIFACT LIMITS INTERPRETATION NSTTW ABNORMALITY VS ARTIFACT SIMILAR 01/20/17 Electronically Signed On 05-08-2017 9:10:01 EDT by Lissy Nguyen
== END 2017-05-06 15:11 | disposition home or self-care (01) ==
LOC: M ED 12:20
DX: S52.532A Colles' fracture of left radius, initial encounter for closed fracture (principal); W01.0XXA Fall on same level from slipping, tripping and stumbling without subsequent striking against object, initial encounter; Y92.22 Religious institution as the place of occurrence of the external cause; Y93.89 Activity, other specified; Y99.8 Other external cause status; G81.92 Hemiplegia, unspecified affecting left dominant side

== ENCOUNTER → 2017-06-13 | Outpatient (REF) | payer OTHER ==
[~2017-06-13] MED LIST changes: +NORCOTAB PO
== END ==
LOC: M LAB REF 12:41
PROVIDERS: ATTEND Internal Medicine
DX: R71.8 Other abnormality of red blood cells (principal)

== ENCOUNTER → 2023-03-30 | Outpatient (CLI) | payer MEDICARE ==
[~2023-03-30] MED LIST changes: +ASPI-1 PO; -ASPI325T PO; +HYDR-3715 PO; +MILK120011 PO; -MILKSUS PO; -NORCOTAB PO; +SENN-53 PO; -SENN1TAB2 PO
== END ==
LOC: M WHC 08:39
PROVIDERS: ATTEND Nurse Practitioner Adult Health
DX: Z12.31 Encounter for screening mammogram for malignant neoplasm of breast (principal)

== ENCOUNTER → 2023-11-26 | Outpatient (CLI) | payer MEDICARE | LOC: M WUC 08:22 | PROVIDERS: ATTEND Nurse Practitioner Adult Health | DX: M19.012 Primary osteoarthritis, left shoulder (principal) ==

== ENCOUNTER → 2023-12-19 | Outpatient (CLI) | payer MEDICARE | LOC: M WHC 07:22 | PROVIDERS: ATTEND Nurse Practitioner Adult Health | DX: Z13.820 Encounter for screening for osteoporosis (principal); M85.851 Other specified disorders of bone density and structure, right thigh ==